=== PATIENT | female | born 1975 | race Caucasian/White ===

== ENCOUNTER 2018-07-04 20:52 | Emergency (ER) | payer BC ==
[~2018-07-04] VITALS: Ht 154.9 cm; Wt 114.8 kg
[2018-07-05 00:05] VITALS: BP 154/84
[2018-07-05] MEDS ORDERED: BACLOFEN 10 MG TAB PO ONE (00:15)
[2018-07-05] MEDS ORDERED: HYDROcodone-ACET 10/325MG TAB PO ONE (00:15)
== END 2018-07-05 00:40 | disposition home or self-care (01) ==
LOC: EDBD 20:52 → ER 20:57
DX: M62.838 Other muscle spasm (principal); M54.2 Cervicalgia; M54.5 Low back pain; R10.9 Unspecified abdominal pain; Z88.1 Allergy status to other antibiotic agents; Z88.5 Allergy status to narcotic agent; Z88.0 Allergy status to penicillin; Z88.2 Allergy status to sulfonamides; V49.49XA Driver injured in collision with other motor vehicles in traffic accident, initial encounter; Y93.89 Activity, other specified; Y99.8 Other external cause status; Y92.488 Other paved roadways as the place of occurrence of the external cause
CPT/HCPCS: 70450; 71250; 72125; 74176